=== PATIENT | female | born 1950 | race African-American/Black ===

== ENCOUNTER 2024-04-05 15:21 | Emergency (ER) | payer SELFPAY ==
[~2024-04-05] VITALS: Ht 167.6 cm; Wt 60.0 kg
[2024-04-05 15:36] VITALS: O2SAT 99
[2024-04-05] MEDS ORDERED: IBUP-2029 MT (16:39)
[2024-04-05] MEDS ORDERED: CYCL10TA21 MT (16:40)
[2024-04-05] MEDS ORDERED: TOPUD PO (16:40)
[2024-04-05] MEDS ORDERED: LIDO700A30 TP (16:40)
[2024-04-05 16:45] VITALS: BP 160/72; PULSE 85; RESP 17; TEMP 36.94740; O2SAT 100
[2024-04-05] MEDS: CYCLOBENZAPRINE 10MG TABLET PO ONE (17:01)
[2024-04-05] MEDS: IBUPROFEN 600MG TABLET PO ONE (17:01)
== END 2024-04-05 17:05 | disposition home or self-care (01) ==
LOC: ER 15:21
DX: M54.50 Low back pain, unspecified (principal); M54.2 Cervicalgia; V49.49XA Driver injured in collision with other motor vehicles in traffic accident, initial encounter; Y93.89 Activity, other specified; Y92.89 Other specified places as the place of occurrence of the external cause; Y99.8 Other external cause status
CPT/HCPCS: 72128; 72131; 99284